=== PATIENT | female | born 1980 ===

== ENCOUNTER 2018-06-20 07:32 | Day surgery (SDC) | payer OTHER ==
[2018-06-12 13:29] VITALS: BMI 33.8
[~2018-06-20 07:32] MED LIST: Carbachol 0.01% IO ONE; Chondroitin/Hyaluronate Opth Syringe KIT (0.55 ml-0.5 ml) IO ONE; Ciprofloxacin 0.3% OPTH SOLN OD SCH; Cyclopentolate 1% Opth (2 ml) OD SCH; Hyaluronidase Human, Recombi 150 U/ML VIAL ONE; Ketorolac Tromethamine 0.5% Opth Soln (3 ml) OD SCH; Lactated Ringer's 500 ML IV ONE; Lidocaine 2% MPF (5 ml) Inj ONE; Phenylephrine 2.5% Opht Soln OD SCH; Povidone Iodine Ophthalmic 5% Soln ONE; Tetracaine 0.5% Ophth (OR ONLY) ONE; Tropicamide 0.5% Opht Sol OD SCH
[2018-06-20] MEDS ORDERED: Tropicamide 1% Opht SOLUTION OD ONE (08:30)
[2018-06-20] MEDS ORDERED: Midazolam 2 MG/2 ML VIAL ONE (09:11)
[2018-06-20] MEDS: Tobramycin/Dexamethasone OPHT OINT ONE ×2 (09:40→09:50)
[2018-06-20 12:13] VITALS: BP 110/74; PULSE 89; RESP 18; TEMP 97.5; O2SAT 97
--- NOTE | 2018-06-20 19:25 | OP ---
PROCEDURE DATE: 06/20/2018 PREOPERATIVE DIAGNOSIS: Mature cataract, right eye. POSTOPERATIVE DIAGNOSIS: Mature cataract, right eye. OPERATIVE PROCEDURE: Phacoemulsification, right eye, insertion of posterior chamber lens implant. SURGEON: Phil Singh MD ANESTHESIA: Local with intravenous sedation. ANESTHESIOLOGIST: . PROCEDURE: The patient was brought into the operating room, placed in supine position, prepped and draped in the usual fashion for ophthalmic surgery. Lid speculum was inserted, lids and exposing globe. A side-port incision was made superiorly and inferiorly with a disposable sharp blade. Anterior chamber was filled with Viscoat. A near clear corneal incision was made temporally with a 2.75-mm keratome. Capsulorrhexis was then performed with Utrata forceps. Hydrodissection carried out with balanced salt solution. Nucleus was phacoemulsified. Remaining cortical fragments were removed with a split irrigation and aspiration system. The capsular sac was filled with Provisc. A posterior chamber lens was then injected into the capsular sac and rotated into horizontal position. Provisc was aspirated out of the anterior chamber. The pupil was constricted with Miochol. The wound was found to be watertight. Topical Betadine, Timoptic, and TobraDex ointment and pressure patch were applied. The patient tolerated the procedure well. Phil Singh MD
== END 2018-06-20 11:05 | disposition home or self-care (01) ==
LOC: C.SDS 07:32
PROVIDERS: ATTEND Ophthalmology
DX: H25.043 Posterior subcapsular polar age-related cataract, bilateral (principal); H25.9 Unspecified age-related cataract
CPT/HCPCS: 66984; 82948; J2250; J3010; J3470